=== PATIENT | female | born 1970 | race Caucasian/White ===

== ENCOUNTER 2018-08-31 14:14 | Emergency (ER) | payer BC, OTHER ==
[2018-08-31] MEDS ORDERED: LIDOCAINE 1% 20 ML MDV ONE (14:58)
--- NOTE | 2018-08-31 15:14 | EDPHYS ---
Physician Documentation [facility] Name: Dev Mata Age: 48 yrs Sex: Female : 1970 Arrival Date: 08/31/2018 Time: 14:17 Bed 13 Private MD: Jerome Tobias ED Physician Celso Kwong HPI: 08/31 15:13 This 48 yrs old Female presents to ER via Ambulatory with complaints of jr8 Laceration To Leg. 15:13 The patient has a laceration related to: shopping occurred at a store, and there are no jr8 complicating factors. The laceration(s) is(are) located on the right leg. Onset: The symptoms/episode began/occurred acutely, today. Associated signs and symptoms: The patient has no apparent associated signs or symptoms. The patient has not experienced similar symptoms in the past. The patient has not recently seen a physician. Grabbed glass jar that was broke scraping it across her right leg causing laceration to leg. Glass did not shatter . 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 - Social history:: Smoking status: Patient/guardian denies using tobacco. - Ebola Screening: : Patient negative for fever greater than or equal to 101.5 degrees Fahrenheit, and additional compatible Ebola Virus Disease symptoms Patient denies exposure to infectious person Patient denies travel to an Ebola-affected area in the 21 days before illness onset No symptoms or risks identified at this time. ROS: 15:13 Eyes: Negative for injury, pain, redness, and discharge, ENT: Negative for injury, jr8 pain, and discharge, Neck: Negative for injury, pain, and swelling, Cardiovascular: Negative for chest pain, palpitations, and edema, Respiratory: Negative for shortness of breath, cough, wheezing, and pleuritic chest pain, Abdomen/GI: Negative for abdominal pain, nausea, vomiting, diarrhea, and constipation, Back: Negative for injury and pain, MS/Extremity: Negative for injury and deformity, Neuro: Negative for headache, weakness, numbness, tingling, and seizure. 15:13 Skin: Positive for laceration(s), of the right leg. Exam: 15:11 Constitutional: This is a well developed, well nourished patient who is awake, alert, jr8 and in no acute distress. Cardiovascular: Regular rate and rhythm with a normal S1 and S2. No gallops, murmurs, or rubs. Normal PMI, no JVD. No pulse deficits. Respiratory: Lungs have equal breath sounds bilaterally, clear to auscultation and percussion. No rales, rhonchi or wheezes noted. No increased work of breathing, no retractions or nasal flaring. Abdomen/GI: Soft, non-tender, with normal bowel sounds. No distension or tympany. No guarding or rebound. No evidence of tenderness throughout. Back: No spinal tenderness. No costovertebral tenderness. Full range of motion. MS/ Extremity: Pulses equal, no cyanosis. Neurovascular intact. Full, normal range of motion. Neuro: Awake and alert, GCS 15, oriented to person, place, time, and situation. Cranial nerves II-XII grossly intact. Motor strength 5/5 in all extremities. Sensory grossly intact. Cerebellar exam normal. Normal gait. 15:11 Skin: injury, laceration(s), the wound is approximately 7.5 cm(s), with a depth of 1.5 cm(s), of the right medial thigh, that can be described as clean, no foreign body, linear, with mild bleeding. Vital Signs: 14:24 BP 132 / 81; Pulse 103; Resp 17; Temp 97.6; Pulse Ox 100% on R/A; Weight 86.18 kg; sg Height 5 ft. 6 in. (167.64 cm) (M); 14:24 Body Mass Index 30.67 (86.18 kg, 167.64 cm) sg Laceration: 15:11 Wound Repair of 7.5cm ( 3.0in ) subcutaneous laceration to right medial thigh. Linear jr8 shaped.. Minimal bleeding noted.. Distal neuro/vascular/tendon intact. Anesthesia: Local anesthetic administered with 10 mls of 1% lidocaine. Wound prep: Extensive cleansing with betadine, Wound irrigation with saline, Wound explored extensively. Skin closed with 8 3-0 Prolene using interrupted sutures and sterile technique. Dressed with Neosporin, 4x4's. Patient tolerated well. MDM: 14:21 Patient medically screened. jr8 15:11 Data reviewed: vital signs, nurses notes, and as a result, I will discharge patient. jr8 Data interpreted: Pulse oximetry: on room air is 100 %. Interpretation: normal. Counseling: I had a detailed discussion with the patient and/or guardian regarding: the historical points, exam findings, and any diagnostic results supporting the discharge/admit diagnosis, the need for outpatient follow up, a family practitioner, to return to the emergency department if symptoms worsen or persist or if there are any questions or concerns that arise at home. 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 Exp: ca1 05/22/2020. Lot #: [id number]. } Route: IM; Site: left deltoid; 15:32 Follow up: Response: No adverse reaction ca1 Disposition: 09/01 09:44 Co-signature as Attending Physician, Celso Kwong MD I agree with the assessment and wa plan of care. Disposition: 08/31/18 15:13 Discharged to Home. Impression: Laceration without foreign body, right lower leg. - Condition is Stable. - Discharge Instructions: Laceration Care, Adult. - Medication Reconciliation Form, Thank You Letter, Antibiotic Education, Prescription Opioid Use form. - Follow up: Jerome Tobias MD; When: 7 - 10 days; Reason: Wound Recheck, Recheck today's complaints, Continuance of care, Staple/Suture removal, Re-evaluation by your physician. - Problem is new. - Symptoms have improved. Signatures: Agustín Carrasquillo RN RN Kwaku Onofre PA PA jr8 Celso Kwong MD MD wv Kati Rajan RN RN ca1 Corrections: (The following items were deleted from the chart) 08/31 15:32 15:13 08/31/2018 15:13 Discharged to Home. Impression: Laceration without foreign body, ca1 right lower leg. Condition is Stable. Forms are Medication Reconciliation Form, Thank You Letter, Antibiotic Education, Prescription Opioid Use. Follow up: Jerome Tobias; When: 7 - 10 days; Reason: Wound Recheck, Recheck today's complaints, Continuance of care, Staple/Suture removal, Re-evaluation by your physician. Problem is new. Symptoms have improved. jr8
--- NOTE | 2018-08-31 15:14 | ER ---
Nurse's Notes [facility] Name: Dev Mata Age: 48 yrs Sex: Female : 1970 Arrival Date: 08/31/2018 Time: 14:17 Bed 13 Private MD: Jerome Tobias Diagnosis: Laceration without foreign body, right lower leg Presentation: 08/31 14:22 Presenting complaint: Patient states: Was at [email or web address], cut the back of my sg right knee and calf with a piece of glass from a cookie jar, applied a dressing and bleeding is controlled at [facility]. Transition of care: patient was not received from another setting of care. Complicating Factors: There are no complicating factors for this patient. Onset of symptoms was August 31, 2018. Risk Assessment: Do you want to hurt yourself or someone else? Patient reports no desire to harm self or others. Initial Sepsis Screen: Does the patient meet any 2 criteria? No. Patient's initial sepsis screen is negative. Does the patient have a suspected source of infection? No. Patient's initial sepsis screen is negative. Care prior to arrival: Bleeding of injury controlled. 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 - Social history:: Smoking status: Patient/guardian denies using tobacco. - Ebola Screening: : Patient negative for fever greater than or equal to 101.5 degrees Fahrenheit, and additional compatible Ebola Virus Disease symptoms Patient denies exposure to infectious person Patient denies travel to an Ebola-affected area in the 21 days before illness onset No symptoms or risks identified at this time. Screenin:29 Abuse screen: Denies threats or abuse. Denies injuries from another. Nutritional ca1 screening: No deficits noted. Tuberculosis screening: No symptoms or risk factors identified. Fall Risk None identified. Assessment: 14:29 General: Appears in no apparent distress. comfortable, Behavior is calm, cooperative, ca1 appropriate for age. Pain: Complains of pain in right knee Pain does not radiate. Pain currently is 2 out of 10 on a pain scale. Pain began 30 min ago. Neuro: Level of Consciousness is awake, alert, obeys commands, Oriented to person, place, time, situation. Cardiovascular: Heart tones S1 S2 present Capillary refill < 3 seconds Patient's skin is warm and dry. Pulses are all present. Respiratory: Airway is patent Respiratory effort is even, unlabored, Respiratory pattern is regular, symmetrical, Breath sounds are clear bilaterally. GI: Abdomen is round non-distended, Bowel sounds present X 4 quads. Abd is soft and non tender X 4 quads. : No deficits noted. No signs and/or symptoms were reported regarding the genitourinary system. EENT: No deficits noted. No signs and/or symptoms were reported regarding the EENT system. Derm: Skin is healthy with good turgor, Skin is pink, warm \T\ dry. Musculoskeletal: Circulation, motion, and sensation intact. Capillary refill < 3 seconds, Range of motion: limited in right knee. Injury Description: Laceration sustained to right knee is clean, 2.6 to 7.5 cm long, bleeding moderately, was sustained less than 30 minutes ago. is bleeding moderately a dressing was applied. Vital Signs: 14:24 BP 132 / 81; Pulse 103; Resp 17; Temp 97.6; Pulse Ox 100% on R/A; Weight 86.18 kg; sg Height 5 ft. 6 in. (167.64 cm) (M); 14:24 Body Mass Index 30.67 (86.18 kg, 167.64 cm) sg ED Course: 14:17 Patient arrived in ED. rg4 14:17 Jerome Tobias MD is Private Physician. rg4 14:21 Kwaku Onofre PA is PHCP. jr8 14:21 Celso Kwong MD is Attending Physician. jr8 14:22 Kati Rajan, ARNULFO is Primary Nurse. ca1 14:23 Triage completed. sg 14:24 Arm band placed on. sg 14:29 Patient has correct armband on for positive identification. Bed in low position. Call ca1 light in reach. Side rails up X 1. Pulse ox on. NIBP on. Elevated right leg. 14:54 Assist provider with laceration repair on right knee that was between 2.6 to 7.5 cm ca1 using sutures. Set up tray. Performed by Kwaku WALTON Dressed with 4X4s, Kerlix, Patient tolerated well. Patient did not have IV access during this emergency room visit. 15:13 Jerome Tobias MD is Referral Physician. 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 Exp: ca1 05/22/2020. Lot #: [id number]. } Route: IM; Site: left deltoid; 15:32 Follow up: Response: No adverse reaction ca1 Outcome: 15:13 Discharge ordered by . gavin 15:31 Discharged to home via wheelchair, with family. ca1 15:31 Condition: stable 15:31 Discharge instructions given to patient, Instructed on discharge instructions, follow up and referral plans. wound care, Demonstrated understanding of instructions, follow-up care, wound care. 15:32 Patient left the ED. ca1 Signatures: Agustín Carrasquillo, RN RN Kwaku Nicole PA PA jrKeshia Landrum rg4 Kati Rajan RN RN ca1
[2018-08-31] MEDS ORDERED: TETANUS & DIPHTHERIA TOX,ADULT 0.5 ML VIAL ONE (15:28)
== END 2018-08-31 15:32 | disposition home or self-care (01) ==
LOC: ER 14:14
PROC: 0JQN0ZZ Repair Right Lower Leg Subcutaneous Tissue and Fascia, Open Approach (ICD-10-PCS; principal; 2018-08-31)
DX: S71.111A Laceration without foreign body, right thigh, initial encounter (principal); W25.XXXA Contact with sharp glass, initial encounter; Y93.89 Activity, other specified; Y92.512 Supermarket, store or market as the place of occurrence of the external cause; Z23 Encounter for immunization
CPT/HCPCS: 90471; 90714; 99284